=== PATIENT | male | born 1955 | race African-American/Black ===

== ENCOUNTER 2019-03-19 14:02 | Outpatient (RCR) | payer OTHER | END 2019-03-20 10:02 | disposition home or self-care (01) | LOC: WSOH 14:02 | DX: M62.830 Muscle spasm of back (principal); X50.0XXA Overexertion from strenuous movement or load, initial encounter; Y93.G3 Activity, cooking and baking; Y92.59 Other trade areas as the place of occurrence of the external cause; Y99.0 Civilian activity done for income or pay; M54.5 Low back pain; Z98.1 Arthrodesis status; I10 Essential (primary) hypertension; M50.30 Other cervical disc degeneration, unspecified cervical region; M51.36 Other intervertebral disc degeneration, lumbar region; Z79.899 Other long term (current) drug therapy ==